=== PATIENT | male | born 1935 | race Caucasian/White ===

== ENCOUNTER → 2019-06-02 | Outpatient (CLI) | payer MEDICARE, OTHER ==
--- NOTE | 2019-06-02 14:32 | Diagnostic Imaging Report ---
Bone density study Clinical History: Osteoporosis screening Bone mineral density measurement Lumbar spine 1.230 gm/cm2 Femoral neck 0.782 gm/cm2 Standard deviation from young adult population (T-score) Lumbar spine 1.3 Femoral neck -1.5 Standard deviation for age adjusted population (Z-score) Lumbar spine 2.45 Femoral neck 0.2 Comments: The alignment of lumbar spine and femoral necks are satisfactory. There is no osteoporosis of the lumbar spine. Osteopenia of the femoral neck is noted. Complete computer analysis will be sent shortly. Diagnostic criteria for osteoporosis BMD: Bone mineral density Normal: BMD measurement less than one standard deviation from young adult population Osteopenia: BMD measurement between 1 and 2.5 standard deviations Osteoporosis: BMD measurement greater than 2.5 standard deviations Severe osteoporosis: Osteoporosis and one or more fragility fractures Signed by: Dr. Masood Cherry MD on 06/02/2019 2:29 PM
== END ==
LOC: DX 12:31
PROVIDERS: ATTEND Internal Medicine Critical Care Medicine
DX: R06.02 Shortness of breath (principal); J61 Pneumoconiosis due to asbestos and other mineral fibers; J44.9 Chronic obstructive pulmonary disease, unspecified; J84.9 Interstitial pulmonary disease, unspecified; M46.46 Discitis, unspecified, lumbar region; G83.10 Monoplegia of lower limb affecting unspecified side; M81.0 Age-related osteoporosis without current pathological fracture; Z79.52 Long term (current) use of systemic steroids; Z87.891 Personal history of nicotine dependence
CPT/HCPCS: 77080